=== PATIENT | female | born 1970 | race Caucasian/White ===

== ENCOUNTER 2019-08-10 11:19 | Observation (INO) ==
[2019-08-10] MEDS ORDERED: Naloxone 0.4 MG/ML INJ IVP PRN (12:33)
[2019-08-10] MEDS ORDERED: Acetaminophen 325 MG TABLET PO PRN (12:41)
[2019-08-10] MEDS: *HR* OxyCODONE Immed Rel 5 MG TABLET PO PRN ×2 (12:57→19:04)
[2019-08-10] MEDS: *HR* HYDROcodone/Acet 5/325 mg TABLET PO PRN ×2 (16:17→22:54)
[2019-08-10] MEDS: Ringers Solution, Lactated 1,000 ML IVC SCH (16:24)
[2019-08-10] MEDS: clonazePAM 1 MG TABLET PO PRN (20:33)
[2019-08-10] MEDS ORDERED: traZODone 50 MG TABLET PO SCH (21:00)
[2019-08-10] MEDS: Mirtazapine 15 MG TABLET PO SCH (22:58)
[2019-08-11] MEDS: *HR* OxyCODONE Immed Rel 5 MG TABLET PO PRN ×4 (02:01→20:36)
[2019-08-11 02:19] LABS: Basophils % 0.3 %; Eosinophils # 0.3 K/mcL (0.0-0.6); Hematocrit 31.7 % (35.3-44.9); Hemoglobin 9.8 g/dL (11.5-15.4); Immature Granulocytes % 0.6 % (0-4); Lymphocytes # 1.8 K/mcL (0.6-4.6); Lymphocytes % 14.2 %; Mean Corpuscular HGB Conc 30.9 g/dL (31.6-35.5); Mean Corpuscular Hemoglobin 29.2 pg (28.0-33.3); Mean Corpuscular Volume 94.3 fL (83.0-100.0); Mean Platelet Volume 9.5 fL (9.4-12.4); Monocytes % 7.6 %; Neutrophils # 9.6 K/mcL (1.6-8.9); Platelet Count 383 K/mcL (140-400); Red Blood Count 3.36 M/mcL (3.82-4.97); Red Cell Distribution Width 13.8 % (11.5-14.5); Segmented Neutrophils % 75.3 %; White Blood Count 12.8 K/mcL (4.3-11.1)
[2019-08-11 02:34] LABS: BUN/Creatinine Ratio 18 (6-26); Blood Urea Nitrogen 12 mg/dL (6-20); Calcium 8.6 mg/dL (8.6-10.3); Carbon Dioxide 29 mEq/L (23-29); Chloride 103 mEq/L (98-107); Glucose 106 mg/dL (70-105); Osmolality,Calculated 286 (280-300); Potassium 4.1 mEq/L (3.5-5.1); Sodium 138 mEq/L (136-145); eGFR For African Americans > 60 (> 60); eGFR For Non-African Americans > 60 (> 60)
[2019-08-11] MEDS: *HR* HYDROcodone/Acet 5/325 mg TABLET PO PRN (06:09)
[2019-08-11] MEDS: Ringers Solution, Lactated 1,000 ML IVC SCH (06:09)
[2019-08-11] MEDS: Multivit/Ca/Min/Fe/FA 1 TAB TABLET PO SCH (08:21)
[2019-08-11] MEDS: lamoTRIgine 100 MG TABLET PO SCH (08:21)
[2019-08-11] MEDS: lisinopriL 10 MG TABLET PO SCH (08:21)
[2019-08-11] MEDS: (Linaclotide [Linzess] 290 MCG) PO SCH (08:31)
[2019-08-11] MEDS: clonazePAM 1 MG TABLET PO PRN ×2 (11:53→22:46)
[2019-08-11] MEDS: polyethylene glycoL 3350 17 GM POWD.PACK PO SCH (14:59)
[2019-08-11] MEDS ORDERED: traZODone 50 MG TABLET PO SCH (21:00)
[2019-08-11] MEDS ORDERED: Ondansetron 4 MG/2 ML VIAL IVP ONE (21:57)
[2019-08-11] MEDS: Mirtazapine 15 MG TABLET PO SCH (22:46)
[2019-08-12 01:46] LABS: Basophils % 0.4 %; Eosinophils # 0.4 K/mcL (0.0-0.6); Eosinophils % 3.5 %; Hematocrit 29.8 % (35.3-44.9); Hemoglobin 9.1 g/dL (11.5-15.4); Immature Granulocytes % 1.6 % (0-4); Lymphocytes % 28.1 %; Mean Corpuscular HGB Conc 30.5 g/dL (31.6-35.5); Mean Corpuscular Hemoglobin 28.8 pg (28.0-33.3); Mean Corpuscular Volume 94.3 fL (83.0-100.0); Mean Platelet Volume 9.4 fL (9.4-12.4); Monocytes # 0.7 K/mcL (0.0-1.3); Monocytes % 6.6 %; Neutrophils # 6.3 K/mcL (1.6-8.9); Platelet Count 386 K/mcL (140-400); Red Blood Count 3.16 M/mcL (3.82-4.97); Red Cell Distribution Width 13.5 % (11.5-14.5); Segmented Neutrophils % 59.8 %; White Blood Count 10.5 K/mcL (4.3-11.1)
[2019-08-12] MEDS: lamoTRIgine 100 MG TABLET PO SCH (07:37)
[2019-08-12] MEDS: lisinopriL 10 MG TABLET PO SCH (07:40)
[2019-08-12] MEDS: Multivit/Ca/Min/Fe/FA 1 TAB TABLET PO SCH (07:42)
[2019-08-12] MEDS: *HR* OxyCODONE Immed Rel 5 MG TABLET PO PRN ×2 (07:43→13:59)
[2019-08-12] MEDS: polyethylene glycoL 3350 17 GM POWD.PACK PO SCH (07:44)
[2019-08-12] MEDS ORDERED: Isovue-370 500 ML BOTTLE IVP ONE (08:47)
[2019-08-12] MEDS ORDERED: Venlafaxine XR (24 HR) 150 MG CAP.ER.24H PO SCH (09:00)
[2019-08-12] MEDS: (Linaclotide [Linzess] 290 MCG) PO SCH (09:57)
[2019-08-12] MEDS: *HR* HYDROcodone/Acet 5/325 mg TABLET PO PRN (10:23)
[2019-08-12 10:50] VITALS: BP 122/76
[2019-08-12] MEDS: clonazePAM 1 MG TABLET PO PRN (13:57)
== END 2019-08-12 14:05 | disposition home or self-care (01) ==
LOC: 3NENU → SUATTDRO 12:33
PROVIDERS: ADMIT Pharmacist; ATTEND Family Medicine

== ENCOUNTER 2019-09-28 02:24 | Observation (INO) ==
[2019-09-28] MEDS ORDERED: Acetaminophen 325 MG TABLET PO PRN (04:27)
[2019-09-28] MEDS ORDERED: Naloxone 0.4 MG/ML INJ IVP PRN (04:27)
[2019-09-28] MEDS: *HR* HYDROmorphone (PF) 1 MG/ML SYRINGE IVP PRN ×4 (05:23→19:59)
[2019-09-28] MEDS: 0.9 % Sodium Chloride 1,000 ML IVC SCH ×2 (05:23→15:22)
[2019-09-28 05:57] LABS: Basophils # 0.1 K/mcL (0.0-0.2); Basophils % 0.6 %; Eosinophils # 0.2 K/mcL (0.0-0.6); Eosinophils % 1.8 %; Hematocrit 32.9 % (35.3-44.9); Hemoglobin 10.2 g/dL (11.5-15.4); Immature Granulocytes % 0.3 % (0-4); Lymphocytes # 2.9 K/mcL (0.6-4.6); Lymphocytes % 26.7 %; Mean Corpuscular Hemoglobin 30.4 pg (28.0-33.3); Mean Corpuscular Volume 97.9 fL (83.0-100.0); Mean Platelet Volume 9.7 fL (9.4-12.4); Monocytes # 0.8 K/mcL (0.0-1.3); Monocytes % 7.6 %; Neutrophils # 6.8 K/mcL (1.6-8.9); Platelet Count 347 K/mcL (140-400); Red Blood Count 3.36 M/mcL (3.82-4.97); White Blood Count 10.8 K/mcL (4.3-11.1)
[2019-09-28 05:59] LABS: INR 1.2; Prothrombin Time 13.2 Seconds (9.4-12.1)
[2019-09-28 06:27] LABS: BUN/Creatinine Ratio 28 (6-26); Blood Urea Nitrogen 19 mg/dL (6-20); Calcium 8.3 mg/dL (8.6-10.3); Carbon Dioxide 25 mEq/L (23-29); Chloride 105 mEq/L (98-107); Glucose 87 mg/dL (70-105); Magnesium 1.8 mg/dL (1.6-2.6); Osmolality,Calculated 284 (280-300); Phosphorous 2.1 mg/dL (2.7-4.5); Sodium 136 mEq/L (136-145); Troponin I < 0.03 ng/mL (< 0.04); eGFR For African Americans > 60 (> 60); eGFR For Non-African Americans > 60 (> 60)
[2019-09-28] MEDS: Ondansetron 4 MG/2 ML VIAL IVP PRN ×2 (07:52→21:01)
[2019-09-28] MEDS ORDERED: DiphenhydraMINE CREAM 28.4 GM TUBE TP PRN (20:42)
[2019-09-28] MEDS: clonazePAM 1 MG TABLET PO SCH (21:00)
[2019-09-28] MEDS ORDERED: *HR* HYDROmorphone (PF) 1 MG/ML SYRINGE IVP PRN (21:04)
[2019-09-29] MEDS: *HR* HYDROcodone/Acet 5/325 mg TABLET PO PRN ×2 (03:23→09:29)
[2019-09-29] MEDS: clonazePAM 1 MG TABLET PO SCH (09:29)
[2019-09-29] MEDS: Ondansetron 4 MG/2 ML VIAL IVP PRN (09:30)
[2019-09-29 10:48] VITALS: BP 121/72
== END 2019-09-29 12:30 | disposition home or self-care (01) ==
LOC: 3BNU
PROVIDERS: ADMIT Family Medicine; ATTEND Family Medicine